=== PATIENT | male | born 1950 | race Caucasian/White ===

== ENCOUNTER → 2018-01-01 | Outpatient (CLI) | payer OTHER ==
[~2018-01-01] MED LIST: ASTEPRO205.5 MCG/ NS; CRESTOR40 MG PO; NABUMETONE500 MG PO; NASACORT16.9 ML NS; PERCOCET 5/3251 TAB PO
== END | disposition home or self-care (01) ==
LOC: RAD 13:52
DX: M25.561 Pain in right knee (principal); M25.562 Pain in left knee